=== PATIENT | male | born 1995 | race African-American/Black ===

== ENCOUNTER 2022-01-27 09:24 | Emergency (ER) | payer OTHER ==
[~2022-01-27] VITALS: Ht 180.3 cm; Wt 77.0 kg
[~2022-01-27 09:24] MED LIST: [UNRECOGNIZED DRUG - OTHER]
[2022-01-27 09:26] VITALS: BP 121/78
[2022-01-27] MEDS ORDERED: ACETAMINOPHEN 325MG TABLET PO ONE (10:00)
[2022-01-27] MEDS ORDERED: SUMATRIPTAN SUCCINATE 25MG TABLET PO ONE (10:00)
== END 2022-01-27 11:51 | disposition home or self-care (01) ==
LOC: ER 09:24
DX: G44.209 Tension-type headache, unspecified, not intractable (principal); G40.909 Epilepsy, unspecified, not intractable, without status epilepticus
CPT/HCPCS: 99284